=== PATIENT | female | born 1940 | race Caucasian/White ===

== ENCOUNTER 2020-01-27 17:27 | Emergency (ER) | payer MEDICARE, OTHER ==
[~2020-01-27] VITALS: Ht 160 cm; Wt 81.6 kg
[~2020-01-27 17:27] MED LIST: AMLODIPINE-BEN1 EAC5 PO; ASPIRIN81 MG PO; CALCIUM 500+D1 EACH PO; METOPROLOL SUCC50 MG PO; PRAVASTATIN SOD40 MG PO
[2020-01-27] MEDS ORDERED: baking soda PO (17:52)
[2020-01-27] MEDS ORDERED: BUPIVACAINE HCL 0.25% 10ML MPF VIAL INJ ONE (18:30)
--- NOTE | 2020-01-27 18:36 | NUR ---
transfer and pumphouse operator notified that patient needs to be transferred
--- NOTE | 2020-01-27 18:42 | NUR ---
INITIATED TRANSFER TO [facility]. SPOKE WITH
--- NOTE | 2020-01-27 18:48 | Emergency Department Note ---
History of Present Illnes History of Present Illness Chief Complaint: General Medicine Complaints History of Present Illness This is a 79 year old female reports she was at [employer] and getting ready to help with passing out halloween candy, was walking through parking lot and tripped over parking stop. Falling and hitting face on concrete. pt reports no LOC, no dizziness, mechanical fall. no anticoagulants. . Historian: Family Member Arrival Mode: Car Onset (how long ago): minute(s) (30) Location: face Quality: pain, broken teeth Radiation: Reports non-radiation Onset quality: sudden Duration (how long): hour(s) (30 minutes) Timing of current episode: constant Progression: unchanged Chronicity: new Context: Reports trauma/injury (as above) Relieving factors: none Exacerbating factors: none Associated symptoms: Reports denies other symptoms Past Medical/Family History Physician Review I have reviewed the patient's past medical and family history. Any updates have been documented here. Past Medical History Recent Fever: No Clinical Suspicion of Infectio: No New/Unexplained Change in Ment: No Past Medical History: Hypertension, CHF Other Medical History: HIGH CHOLESTEROL\ Past Surgical History: None Social History Smoking Cessation: Never Smoker Counseling Performed: No Alcohol Use: None Any Illegal Drug Use: No Physically hurt or threatened: No Other Last Tetanus: NO Any Pre-Existing Lines (PICC,: No Review of Systems Review of Systems Constitutional: Reports no symptoms EENTM: Reports as per HPI Cardiovascular: Reports no symptoms Respiratory: Reports no symptoms Gastrointestinal: Reports no symptoms Genitourinary: Reports no symptoms Musculoskeletal: Reports as per HPI Integumentary: Reports no symptoms Neurological: Reports no symptoms Psychological: Reports no symptoms Endocrine: Reports no symptoms Hematological/Lymphatic: Reports no symptoms Physical Exam Related Data Allergies: Coded Allergies: No Known Allergies (Unverified , 08/30/14) Triage Vital Signs Vital Signs Date Time Temp Pulse Resp B/P (MAP) Pulse Ox O2 Delivery O2 Flow Rate FiO2 01/27/20 17:45 98.0 87 16 163/79 100 01/27/20 18:00 Room Air Vital signs reviewed: Yes Physical Exam CONSTITUTIONAL Constitutional: Present well-developed, Present well-nourished HENT multiple facial abrasions and contusions, multiple loose teeth, chiped and broken teeth through and through laceration to lower lip HENT L/R: Present left ext ear normal, Present right ext ear normal EYES Eyes: Reports PERRL, Reports conjunctivae normal NECK Neck: Present ROM normal PULMONARY Pulmonary: Present effort normal, Present breath sounds normal CARDIOVASCULAR Cardiovascular: Present regular rhythm, Present heart sounds normal, Present capillary refill normal, Present normal rate GASTROINTESTINAL Abdominal: Present soft, Present nontender, Present bowel sounds normal GENITOURINARY Genitourinary: Present exam deferred SKIN Skin: Present warm, Present dry MUSCULOSKELETAL Musculoskeletal: Present ROM normal NEUROLOGICAL Neurological: Present alert, Present oriented x 3, Present no gross motor or sensory deficits PSYCHOLOGICAL Psychological: Present mood/affect normal, Present judgement normal Results Imaging Imaging results reviewed: Yes Impressions Exams: Head CT, Maxillofacial CT and Cervical Spine CTs without IV Contrast History: Trauma, fall Comparison studies:None Technique: Axial images were obtained from the brain, face and cervical spine. Coronal and sagittal reconstructions obtained from the axial data. Dose modulation, iterative reconstruction, and/or weight based adjustment of the mA/kV was utilized to reduce the radiation dose to as low as reasonably achievable. Intravenous contrast: None Findings: Head CT: Scalp: No abnormalities. Bones: No fractures, blastic or lytic lesions. Brain sulci: Mildly prominent, but age appropriate. Ventricles: Normal in size and configuration. No hydrocephalus. Extra-axial spaces and parenchyma: Acute subdural hematoma along the anterior falx measures within the interhemispheric fissure measures up to 5 mm in max thickness. Small volume acute subarachnoid hemorrhage also present along the interhemispheric fissure. A 5 mm hemorrhage along the left superior frontal gyrus is without significant surrounding edema. Regional mass effect does not result in midline shift or herniation. A few subtle hypodensities in the supratentorial white matter are nonspecific but are most compatible with chronic microvascular ischemic changes. Sellar/suprasellar region: No abnormalities Craniocervical junction: The foramen magnum is patent. No Chiari one malformation. Maxillofacial CT: Soft tissues: Upper and lower left swelling with small linear retained hyperdense and is in the lower lip. Bones and dentition: Acute dental alveolar injury with small minimally displaced fractures of the alveolar buccal cortices surrounding the roots of teeth #8 and 9. Tooth #9 is partially avulsed. Orbits: No abnormalities. Paranasal sinuses: Clear. Cervical spine CT: Atlantoaxial articulation: Intact. Alignment: Straightening of the usual cervical lordotic curvature may be positional or possibly related muscles spasm. Approximately 2 mm anterolisthesis of C4 on C5 is most likely degenerative in etiology. Cervicomedullary junction: No abnormalities. Patent foramen magnum. Soft tissues: No gross acute abnormalities. Vertebrae: No fractures, infection or neoplasm. Degenerative changes: Multilevel disc degeneration, worse/moderate at C5-C6 and C6-C7. Advanced multilevel facet arthrosis. At least mild canal stenosis at C5-C6 due to a disc osteophyte complex. Multilevel uncovertebral facet arthrosis result in multilevel foraminal stenosis which is mild on the right at C2-C3, moderate right and mild left at C3-C4, severe right and mild left at C4-C5, severe bilaterally at C5-C6 and mild on the right at C6-C7 Incidental findings: Chronic inflammatory changes in the mastoid air cells. Scattered calcified atherosclerosis. IMPRESSION: Head CT: 1. Acute interhemispheric 5 mm thick subdural hematoma, small volume interhemispheric acute subarachnoid hemorrhage and small left superior frontal hemorrhagic contusion without midline shift or herniation. 2. No fracture or other acute intracranial abnormalities. Facial CT: 1. Minimally displaced avulsions of the alveolar buccal cortices surrounding the roots of teeth #8 and #9 with avulsed tooth #9. 2. Upper and lower lip swelling with retained foreign bodies or tooth fragments in the lower lip. Cervical spine CT: 1. No cervical spine fracture or acute subluxation. 2. Multilevel degenerative changes as described. 3. Ligament, spinal cord and or vascular abnormalities cannot be excluded on the basis of this examination. Critical findings of acute intracranial hemorrhage were discussed with Dr. Mchugh at 6:35 PM on 01/27/[address] Bowers via telephone. Signed by: Dr. Marilyn Bowers M.D. on 01/27/2020 7:00 PM Dictated By: MARILYN BOWERS MD 99 Transcribed By: SHALINI on 01/27/201899 COPY TO: SCOT LORD MD~ Assessment & Plan Medical Decision Making MDM pt s/p fall ct brain, cr c spine ,ct face ordered to eval for fractures, intracranial bleed, 183 i was call by neuro radiologist pt with subarachnoid and subdural midline frontal bleeding pt will need transfer to trauma center, transfer to [facility] initiated i spoke with dr huynh (trauma surgeon) at the [facility] and she accepts pt for transfer Assessment & Plan Final Impression: (1) Subarachnoid bleed (2) Subdural bleeding (3) Laceration of lip Depart Disposition: TRANS TO OTHER [facility] Last Vital Signs Date Time Temp Pulse Resp B/P (MAP) Pulse Ox O2 Delivery O2 Flow Rate FiO2 01/27/20 18:00 98.0 87 16 163/79 100 Room Air Home Meds Reported Medications [baking soda] No Conflict Check, 1 TAB PO BID 01/27/20 Metoprolol Succinate (METOPROLOL SUCCINATE) 50 Mg Tab.er.24h, 50 MG PO DAILY, MG 08/30/14 Amlodipine Besylate/Benazepril (AMLODIPINE-BENAZEPRIL 10-40 MG) 1 Each Capsule, 1 TAB PO DAILY 08/30/14 Pravastatin Sodium (PRAVASTATIN SODIUM) 40 Mg Tablet, 40 MG PO DAILY 08/30/14 Aspirin (ASPIRIN) 81 Mg Tab.chew, 2 TAB PO DAILY 08/30/14 Discontinued Reported Medications Calcium Carbonate/Vitamin D3 (CALCIUM 500+D TABLET CHEW) 1 Each Tab.chew, 1 TAB PO DAILY 08/30/14 Medications in the ED Bupivacaine HCl 10 ml ONCE ONCE INJ Last administered on 01/27/20at 18:29; Admin Dose 10 ML; Start 01/27/20 at 18:30; Stop 01/27/20 at 18:31; Status DC ART MCHUGH MD Jan 27, 2020 18:48
--- NOTE | 2020-01-27 18:51 | NUR ---
[facility] states that they can get an ambulance on site within 15 minutes of acceptance by receiving facility
[2020-01-27 18:57] LABS: BASOPHILS # (AUTO) 0.1 (0.0-0.1); BASOPHILS % 0.9 % (0.0-1.0); EOSINOPHILS # (AUTO) 0.4 (0.0-0.4); EOSINOPHILS % 4.1 % (0.0-6.0); HEMATOCRIT 36.2 % (34.2-44.1); HEMOGLOBIN 11.9 g/dL (12.0-16.0); LYMPHOCYTES # (AUTO) 2.3 (1.0-3.2); LYMPHOCYTES % 23.3 % (18.0-39.1); MEAN CORPUSCULAR HEMOGLOBIN 30.7 pg (28-32); MEAN CORPUSCULAR HGB CONC 32.9 g/dL (31-35); MEAN CORPUSCULAR VOLUME 93.5 fL (81-99); MONOCYTES # (AUTO) 1.1 (0.2-0.8); MONOCYTES % 10.8 % (4.4-11.3); NEUTROPHILS % 60.3 % (38.7-80.0); PLATELET COUNT 226 x10e3/uL (140-360); RED BLOOD COUNT 3.87 x10e6/uL (3.6-5.1); RED CELL DISTRIBUTION WIDTH 13.5 % (11.7-14.4)
--- NOTE | 2020-01-27 19:00 | NUR ---
lower lip lac irrigated c ns. multiple small shards of tooth noted removed. area inspected thoroughly c no debris noted in wound.
--- NOTE | 2020-01-27 19:04 | Diagnostic Imaging Report ---
Exams: Head CT, Maxillofacial CT and Cervical Spine CTs without IV Contrast History: Trauma, fall Comparison studies:None Technique: Axial images were obtained from the brain, face and cervical spine. Coronal and sagittal reconstructions obtained from the axial data. Dose modulation, iterative reconstruction, and/or weight based adjustment of the mA/kV was utilized to reduce the radiation dose to as low as reasonably achievable. Intravenous contrast: None Findings: Head CT: Scalp: No abnormalities. Bones: No fractures, blastic or lytic lesions. Brain sulci: Mildly prominent, but age appropriate. Ventricles: Normal in size and configuration. No hydrocephalus. Extra-axial spaces and parenchyma: Acute subdural hematoma along the anterior falx measures within the interhemispheric fissure measures up to 5 mm in max thickness. Small volume acute subarachnoid hemorrhage also present along the interhemispheric fissure. A 5 mm hemorrhage along the left superior frontal gyrus is without significant surrounding edema. Regional mass effect does not result in midline shift or herniation. A few subtle hypodensities in the supratentorial white matter are nonspecific but are most compatible with chronic microvascular ischemic changes. Sellar/suprasellar region: No abnormalities Craniocervical junction: The foramen magnum is patent. No Chiari one malformation. Maxillofacial CT: Soft tissues: Upper and lower left swelling with small linear retained hyperdense and is in the lower lip. Bones and dentition: Acute dental alveolar injury with small minimally displaced fractures of the alveolar buccal cortices surrounding the roots of teeth #8 and 9. Tooth #9 is partially avulsed. Orbits: No abnormalities. Paranasal sinuses: Clear. Cervical spine CT: Atlantoaxial articulation: Intact. Alignment: Straightening of the usual cervical lordotic curvature may be positional or possibly related muscles spasm. Approximately 2 mm anterolisthesis of C4 on C5 is most likely degenerative in etiology. Cervicomedullary junction: No abnormalities. Patent foramen magnum. Soft tissues: No gross acute abnormalities. Vertebrae: No fractures, infection or neoplasm. Degenerative changes: Multilevel disc degeneration, worse/moderate at C5-C6 and C6-C7. Advanced multilevel facet arthrosis. At least mild canal stenosis at C5-C6 due to a disc osteophyte complex. Multilevel uncovertebral facet arthrosis result in multilevel foraminal stenosis which is mild on the right at C2-C3, moderate right and mild left at C3-C4, severe right and mild left at C4-C5, severe bilaterally at C5-C6 and mild on the right at C6-C7 Incidental findings: Chronic inflammatory changes in the mastoid air cells. Scattered calcified atherosclerosis. IMPRESSION: Head CT: 1. Acute interhemispheric 5 mm thick subdural hematoma, small volume interhemispheric acute subarachnoid hemorrhage and small left superior frontal hemorrhagic contusion without midline shift or herniation. 2. No fracture or other acute intracranial abnormalities. Facial CT: 1. Minimally displaced avulsions of the alveolar buccal cortices surrounding the roots of teeth #8 and #9 with avulsed tooth #9. 2. Upper and lower lip swelling with retained foreign bodies or tooth fragments in the lower lip. Cervical spine CT: 1. No cervical spine fracture or acute subluxation. 2. Multilevel degenerative changes as described. 3. Ligament, spinal cord and or vascular abnormalities cannot be excluded on the basis of this examination. Critical findings of acute intracranial hemorrhage were discussed with Dr. Lynn at 6:35 PM on 01/27/[address] Bowers via telephone. Signed by: Dr. Guillermo Bowers M.D. on 01/27/2020 7:00 PM
[2020-01-27 19:06] LABS: INR 0.85
[2020-01-27 19:07] LABS: PARTIAL THROMBOPLASTIN TIME 27.3 seconds (23.8-35.5)
[2020-01-27 19:14] LABS: ANION GAP 16.4 mmol/L (8-16); CALCIUM 9.9 mg/dL (8.4-10.2); CREATININE, SERUM 2.15 mg/dL (0.57-1.11); POTASSIUM 4.4 mmol/L (3.5-5.1)
[2020-01-27 19:36] VITALS: BP 121/86
== END 2020-01-27 19:39 | disposition other institution (70) ==
LOC: ER 17:38
DX: S06.6X0A Traumatic subarachnoid hemorrhage without loss of consciousness, initial encounter (principal); S01.511A Laceration without foreign body of lip, initial encounter; W01.0XXA Fall on same level from slipping, tripping and stumbling without subsequent striking against object, initial encounter; Y93.01 Activity, walking, marching and hiking; Y92.22 Religious institution as the place of occurrence of the external cause; I10 Essential (primary) hypertension; I50.9 Heart failure, unspecified; E78.00 Pure hypercholesterolemia, unspecified
CPT/HCPCS: 36415; 70450; 70486; 72125; 80048; 85025; 85610; 85730; 99284